=== PATIENT | female | born 1940 | race Caucasian/White ===

== ENCOUNTER 2016-09-02 11:31 | Emergency (ER) | payer MEDICARE ==
[~2016-09-02 11:31] MED LIST: ALDACTONE 25MG25 MG PO; ASPIR 8181 MG PO; ATROVENT INH S2.5 ML INH; BUMEX 1MG TABLET1 MG PO; KLONOPIN TAB 00.5 MG PO; LIPITOR TAB 2020 MG PO; LOPRESSOR 25 MG25 MG PO; VENTOLIN/PROVE0.5 ML INH
[2016-09-02 13:26] LABS: HEMOGLOBIN 13.6 gm/dl (12.3-15.3); RED BLOOD COUNT 4.38 M/UL (4.00-5.10); WHITE BLOOD COUNT 12.1 K/UL (4.5-11.0)
== END 2016-09-02 14:51 | disposition home or self-care (01) ==
LOC: ER1 11:31
PROVIDERS: Family Medicine
DX: J44.0 Chronic obstructive pulmonary disease with (acute) lower respiratory infection (principal); J20.9 Acute bronchitis, unspecified; J44.1 Chronic obstructive pulmonary disease with (acute) exacerbation; F17.200 Nicotine dependence, unspecified, uncomplicated; Z86.79 Personal history of other diseases of the circulatory system; Z88.8 Allergy status to other drugs, medicaments and biological substances; Z79.899 Other long term (current) drug therapy
CPT/HCPCS: 36415; 71010; 80053; 82550; 82553; 82803; 83874; 83880; 84484; 85025; 93005; 94640; 94664; 96374; 99284; J2930

== ENCOUNTER 2020-09-11 00:31 | Emergency (ER) | payer MEDICARE ==
[~2020-09-11 00:31] MED LIST changes: +AUGMENTIN 875-1 EACH PO; +CEFUROXIME500 MG PO; +ECOTRIN81 MG PO; +IMDUR ER TAB 3030 MG PO; +KLONOPIN1 MG PO; +LASIX20 MG PO; +LIPITOR TAB 1010 MG PO; +LOPRESSOR50 MG PO; +NEURONTIN100 MG PO; +NITROSTAT0.4 MG SL; +PREDNISONE10 MG PO; +VITAMIN D250000 UNIT PO
[2020-09-11 01:23] LABS: HEMOGLOBIN 14.6 gm/dl (12.3-15.3); RED BLOOD COUNT 4.76 M/UL (4.00-5.10); WHITE BLOOD COUNT 6.5 K/UL (4.5-11.0)
== END 2020-09-11 04:20 | disposition home or self-care (01) ==
LOC: ER1 00:31
PROVIDERS: Physician Assistant
DX: S83.91XA Sprain of unspecified site of right knee, initial encounter (principal); J44.1 Chronic obstructive pulmonary disease with (acute) exacerbation; I10 Essential (primary) hypertension; E78.00 Pure hypercholesterolemia, unspecified; F17.200 Nicotine dependence, unspecified, uncomplicated; Z95.1 Presence of aortocoronary bypass graft; X50.0XXA Overexertion from strenuous movement or load, initial encounter
CPT/HCPCS: 71045; 73564; 73590; 80053; 82550; 82553; 83874; 84484; 85025; 93005; 94664; 99284

== ENCOUNTER 2021-04-05 15:57 | Inpatient (IN) | payer MEDICARE, MEDICAID ==
[~2021-04-05] VITALS: Ht 165.1 cm; Wt 90.7 kg
[~2021-04-05 15:57] MED LIST changes: +BUMETANIDE1 MG PO; -BUMEX 1MG TABLET1 MG PO
[2021-04-05 16:16] LABS: HEMOGLOBIN 12.5 gm/dl (12.3-15.3); RED BLOOD COUNT 4.08 M/UL (4.00-5.10)
[2021-04-06 03:39] LABS: HEMOGLOBIN 11.4 gm/dl (12.3-15.3); RED BLOOD COUNT 3.78 M/UL (4.00-5.10); WHITE BLOOD COUNT 17.6 K/UL (4.5-11.0)
[2021-04-06] MEDS ORDERED: NITROGLYCERIN0.4 MG SL (08:31)
[2021-04-06] MEDS ORDERED: ALBUTEROL2.5 MG/3 M INH (08:34)
[2021-04-06] MEDS ORDERED: IPRATROPIU0.2 MG/1 M INH (08:35)
[2021-04-06] MEDS ORDERED: LORATADINE10 MG PO (08:37)
[2021-04-07 04:08] LABS: HEMOGLOBIN 11.1 gm/dl (12.3-15.3); RED BLOOD COUNT 3.71 M/UL (4.00-5.10); WHITE BLOOD COUNT 15.5 K/UL (4.5-11.0)
[2021-04-08 03:13] LABS: HEMOGLOBIN 11.2 gm/dl (12.3-15.3); RED BLOOD COUNT 3.74 M/UL (4.00-5.10); WHITE BLOOD COUNT 16.2 K/UL (4.5-11.0)
[2021-04-08 15:14] LABS: ORGANISM ID Not indicated. (.); SPECIMEN SOURCE Urine (.); STREPTOCOCCUS PNEUMONIAE AG Negative (Negative)
[2021-04-09 02:59] LABS: HEMOGLOBIN 11.6 gm/dl (12.3-15.3); RED BLOOD COUNT 3.82 M/UL (4.00-5.10); WHITE BLOOD COUNT 15.3 K/UL (4.5-11.0)
[2021-04-09] MEDS ORDERED: FUROSEMIDE40 MG PO (08:57)
[2021-04-09] MEDS ORDERED: PREDNISONE10 MG PO (08:57)
[2021-04-09] MEDS ORDERED: ISOSORBIDE MONO30 MG PO (08:57)
== END 2021-04-09 12:38 | disposition home or self-care (01) | DRG 194 ==
LOC: ER1 15:57 → PROG CARE 18:18 → CDU 18:18 → PROG CARE 19:51
PROVIDERS: Emergency Medicine; Internal Medicine; Internal Medicine Nephrology; ADMIT Internal Medicine
PROC: 5A09457 Assistance with Respiratory Ventilation, 24-96 Consecutive Hours, Continuous Positive Airway Pressure (ICD-10-PCS; principal; 2021-04-05)
PROC: 5A0945A Assistance with Respiratory Ventilation, 24-96 Consecutive Hours, High Flow/Velocity Cannula (ICD-10-PCS; 2021-04-06)
DX: I13.0 Hypertensive heart and chronic kidney disease with heart failure and stage 1 through stage 4 chronic kidney disease, or unspecified chronic kidney disease (principal); J96.21 Acute and chronic respiratory failure with hypoxia; Z20.822 Contact with and (suspected) exposure to COVID-19; J96.22 Acute and chronic respiratory failure with hypercapnia; I50.33 Acute on chronic diastolic (congestive) heart failure; N17.9 Acute kidney failure, unspecified; E66.2 Morbid (severe) obesity with alveolar hypoventilation; J44.1 Chronic obstructive pulmonary disease with (acute) exacerbation; I08.2 Rheumatic disorders of both aortic and tricuspid valves; F17.210 Nicotine dependence, cigarettes, uncomplicated; N26.1 Atrophy of kidney (terminal); N28.1 Cyst of kidney, acquired; G47.33 Obstructive sleep apnea (adult) (pediatric); I48.0 Paroxysmal atrial fibrillation; N18.30 Chronic kidney disease, stage 3 unspecified; I25.10 Atherosclerotic heart disease of native coronary artery without angina pectoris; Z95.1 Presence of aortocoronary bypass graft; Z79.01 Long term (current) use of anticoagulants; Z82.49 Family history of ischemic heart disease and other diseases of the circulatory system; Z99.81 Dependence on supplemental oxygen; Z88.8 Allergy status to other drugs, medicaments and biological substances; Z79.82 Long term (current) use of aspirin; Z68.33 Body mass index [BMI] 33.0-33.9, adult
CPT/HCPCS: ECHO; 36415; 36600; 51702; 71045; 80048; 80053; 80307; 81001; 82550; 82553; 82570; 82803; 83036; 83540; 83550; 83605; 83735; 83874; 83880; 84100; 84156; 84484; 85025; 85027; 85652; 86140; 87040; 87086; 87278; 87899; 93005; 93306; 94640; 94660; 94664; 94760; 94761; 96374; 96375; 97116-GP-CQ; 97161; 97166; 97530-GP-CQ; 99285; J0456; J0696; J1650; J1940; J2920; J2930; J7030; U0002

== ENCOUNTER 2021-09-15 18:39 | Inpatient (IN) | payer MEDICARE ==
[~2021-09-15] VITALS: Ht 162.6 cm; Wt 90.7 kg
[~2021-09-15 18:39] MED LIST changes: +ALBUTEROL2.5 MG/3 M INH; +FUROSEMIDE40 MG PO; +IPRATROPIU0.2 MG/1 M INH; +ISOSORBIDE MONO30 MG PO; -KLONOPIN1 MG PO; -LIPITOR TAB 2020 MG PO; +LORATADINE10 MG PO; -NEURONTIN100 MG PO; +NEURONTIN300 MG PO; +NITROGLYCERIN0.4 MG SL
[2021-09-15 21:09] LABS: RED BLOOD COUNT 4.49 M/UL (4.00-5.10); WHITE BLOOD COUNT 8.4 K/UL (4.5-11.0)
[2021-09-16] MEDS ORDERED: KLONOPIN1 MG PO (12:00)
[2021-09-16] MEDS ORDERED: BUSPAR 10MG10 MG PO (13:57)
[2021-09-16] MEDS ORDERED: LASIX40 MG PO (14:00)
[2021-09-16] MEDS ORDERED: LIPITOR40 MG PO (23:12)
[2021-09-17 03:03] LABS: HEMOGLOBIN 13.1 gm/dl (12.3-15.3); RED BLOOD COUNT 4.49 M/UL (4.00-5.10)
[2021-09-17] MEDS ORDERED: LISINOPRIL5 MG PO (13:48)
[2021-09-17] MEDS ORDERED: FARXIGA5 MG PO (13:48)
[2021-09-17] MEDS ORDERED: GLUCOPHAGE 500500 MG PO (13:48)
[2021-09-17] MEDS ORDERED: SYMBICORT 160-1 INHA INH (13:48)
[2021-09-17] MEDS ORDERED: LOPRESSOR 25 MG25 MG PO (13:48)
== END 2021-09-17 15:32 | disposition home health service (06) | DRG 291 ==
LOC: ER1 18:39 → CDU 22:00 → PROG CARE 09-16 11:59
PROVIDERS: Internal Medicine Infectious Disease; Preventive Medicine Occupational Medicine; ADMIT Internal Medicine
PROC: 5A09457 Assistance with Respiratory Ventilation, 24-96 Consecutive Hours, Continuous Positive Airway Pressure (ICD-10-PCS; principal; 2021-09-16)
DX: I13.0 Hypertensive heart and chronic kidney disease with heart failure and stage 1 through stage 4 chronic kidney disease, or unspecified chronic kidney disease (principal); J96.21 Acute and chronic respiratory failure with hypoxia; J96.22 Acute and chronic respiratory failure with hypercapnia; I50.33 Acute on chronic diastolic (congestive) heart failure; J44.1 Chronic obstructive pulmonary disease with (acute) exacerbation; E66.2 Morbid (severe) obesity with alveolar hypoventilation; Z20.822 Contact with and (suspected) exposure to COVID-19; I44.0 Atrioventricular block, first degree; E11.22 Type 2 diabetes mellitus with diabetic chronic kidney disease; I49.3 Ventricular premature depolarization; I48.0 Paroxysmal atrial fibrillation; I25.10 Atherosclerotic heart disease of native coronary artery without angina pectoris; N18.30 Chronic kidney disease, stage 3 unspecified; Z95.1 Presence of aortocoronary bypass graft; Z87.891 Personal history of nicotine dependence; Z82.49 Family history of ischemic heart disease and other diseases of the circulatory system; Z88.8 Allergy status to other drugs, medicaments and biological substances; Z79.82 Long term (current) use of aspirin; Z79.899 Other long term (current) drug therapy; Z68.34 Body mass index [BMI] 34.0-34.9, adult
CPT/HCPCS: 36600; 71045; 80048; 80053; 81001; 82533; 82550; 82553; 82803; 82962; 83036; 83690; 83735; 83880; 84439; 84443; 84484; 85025; 85652; 87086; 93005; 94640; 94660; 94664; 94760; 96374; 96375; 96376; 97162; 97167; 99285; J0696; J1650; J1940; J2543; J2920; J2930; U0002

== ENCOUNTER → 2021-10-14 | Outpatient (CLI) | payer MEDICARE ==
[~2021-10-14] MED LIST changes: +BUSPAR 10MG10 MG PO; +FARXIGA5 MG PO; +GLUCOPHAGE 500500 MG PO; +KLONOPIN1 MG PO; +LASIX40 MG PO; +LIPITOR40 MG PO; +LISINOPRIL5 MG PO; +SYMBICORT 160-1 INHA INH
== END ==
LOC: HEART 5 14:05
DX: R06.02 Shortness of breath (principal)
CPT/HCPCS: 94060; 94729